=== PATIENT | male | born 1940 | race Caucasian/White ===

== ENCOUNTER → 2025-04-19 12:37 | Outpatient (REF) | payer MEDICARE, SELFPAY ==
[2025-04-19 13:30] LABS: % Basophils 0.2 % (0-2); % Immature Granulocytes 0.4 % (0-0.5); % Lymphocytes 6.2 % (20.5-51.1); % Monocytes 6.3 % (1.7-9.3); % Neutrophils 86.9 % (42.2-75.2); Absolute Lymphocytes 0.6 10^3/uL (1.2-3.4); Absolute Monocytes 0.6 10^3/uL (0.1-0.6); Absolute Neutrophils 8.1 10^3/uL (1.4-6.5); Hematocrit 39.9 % (39.0-52.0); Hemoglobin 13.4 g/dL (13.0-18.0); Mean Corp Hgb Conc. 33.6 g/dL (33.0-37.0); Mean Corpuscular Hgb 31.2 pg (27.0-31.0); Mean Corpuscular Volume 92.8 fL (80.0-94.0); Mean Platelet Volume 10.1 fL (7.4-10.4); Nucleated Red Blood Cells % 0 % (-); Platelet Count 168 10^3/uL (130-400); White Blood Cell Count 9.3 10^3/uL (4.8-10.8)
[2025-04-19 14:41] LABS: TSH Reflex To Free T4 0.84 uIU/ml (0.47-4.68)
[2025-04-19 15:31] LABS: Blood Urea Nitrogen 28 mg/dl (9-20); Calcium 9.4 mg/dl (8.4-10.2); Carbon Dioxide 25 mmol/L (22-30); Chloride 103 mmol/L (98-107); Glucose 92 mg/dl (70-99); Potassium 4.5 mmol/L (3.5-5.1); Sodium 136 mmol/L (135-145); eGFR 54.51
== END ==
LOC: RAD 12:37
PROVIDERS: ATTENDING PHYSICIAN Internal Medicine
DX: R05.1 Acute cough (principal); I49.9 Cardiac arrhythmia, unspecified; E03.9 Hypothyroidism, unspecified
CPT/HCPCS: 36415; 71046; 80048; 84443; 85025

== ENCOUNTER 2025-04-20 01:41 | Inpatient (IN) | payer MEDICARE, SELFPAY ==
[2025-04-19 22:09] VITALS: BP 121/69
[2025-04-19 22:35] VITALS: BP 132/73
[2025-04-19 22:38] VITALS: BMI 28.6
[2025-04-19 23:00] VITALS: BP 117/61
[2025-04-19 23:06] LABS: % Basophils 0.3 % (0-2); % Immature Granulocytes 0.3 % (0-0.5); % Lymphocytes 2.8 % (20.5-51.1); % Monocytes 4.4 % (1.7-9.3); % Neutrophils 92.2 % (42.2-75.2); Absolute Lymphocytes 0.2 10^3/uL (1.2-3.4); Absolute Monocytes 0.3 10^3/uL (0.1-0.6); Hematocrit 35.4 % (39.0-52.0); Hemoglobin 12.3 g/dL (13.0-18.0); Mean Corp Hgb Conc. 34.7 g/dL (33.0-37.0); Mean Corpuscular Hgb 31.2 pg (27.0-31.0); Mean Corpuscular Volume 89.8 fL (80.0-94.0); Nucleated Red Blood Cells % 0 % (-); Platelet Count 141 10^3/uL (130-400); Red Blood Cell Count 3.94 10^6/uL (4.70-6.10); Red Cell Dist. Width 12.7 % (11.5-14.5); White Blood Cell Count 7.5 10^3/uL (4.8-10.8)
[2025-04-19 23:14] LABS: INR 1.69; PT 20.1 Sec (11.4-14.6)
[2025-04-19 23:17] LABS: Blood Urea Nitrogen 29 mg/dl (9-20); Calcium 8.7 mg/dl (8.4-10.2); Carbon Dioxide 24 mmol/L (22-30); Chloride 104 mmol/L (98-107); Estimated Creatinine Clearance 56 ml/min; Glucose 113 mg/dl (70-99); Sodium 131 mmol/L (135-145); eGFR 54.51
[2025-04-19 23:26] LABS: Lactic Acid 1.7 mmol/L (0.7-2.0)
[2025-04-19 23:26] LABS: COVID-19 Antigen Negative (Negative)
[2025-04-19 23:32] LABS: NT-proBNP 1620 pg/ml
--- NOTE | 2025-04-19 23:59 | ED.GENMED ---
Addendum entered and electronically signed by Theodore Carrera DO 04/20/25 00:56:
Discussed with daughter patient is transferring his medical care to [place] was actually set to see Dr. Birmingham tomorrow from cardiology
Original Note:
History of Present Illness
General
Chief Complaint: Fall
Source: patient and family
Exam Limitations: none
Time Seen by Provider: 04/19/25 23:41
Nursing documentation reviewed up to this point in time: agreed with
History of Present Illness
History of Present Illness:
Patient very pleasant 84-year-old male companied by his daughter patient is from [place] patient relocated up here recently because his spouse was diagnosed with cancer she passed recently, patient personally has bypass surgery A-fib who
supposed to have a cardioversion but it was put on hold due to missing some doses of his anticoagulant, past few days has had fever chills cough trouble getting out of bed, outpatient x-ray today showed pneumonia has had a rattle in his chest never
had a COVID shot not eating or drinking, no dysuria frequency patient is hard of hearing he did fall today denies hitting his head other was not witnessed by his daughter she heard a thump
Past History
Past History
ED Past Medical History: Arrthythmia and HTN
ED Past Surgical History: Cardiac
Social History
Tobacco: Non-smoker
Alcohol: None
Drug: None
Personal:
Living: with family
Employment: Retired
Review of Systems
Review of Systems
All Other Systems: Not applicable
Constitutional: Reports fever and fatigue
Respiratory: Reports cough and trouble breathing
Cardiac: Reports no symptoms
ABD/GI: Reports no symptoms
Neurological: Reports weakness
Endocrine: Reports no symptoms
Psychiatric: Reports no symptoms
Phy Exam
Physical Exam
Physical Exam:
Physical Exam
General: Elderly male feels warm coughing dry lips globally weak
Neck: No jaundice
Heart: Rapid and irregular
Lungs: Rhonchi left greater than
Abdomen: Soft
Neuro: alert and oriented. Globally weak
Skin: no rash
Psychiatric: Cooperative
Extremities: Edema is present
Course
Orders/Labs/Results
Orders:
Orders
04/19/25 22:14
Electrocardiogram (*1) Urgent
Reason for Study: Other
Other Reason for Exam: Respiratory Distress
Cardiac Monitoring- Treatment ONCE
EKG- Treatment ONCE
IV Insert/Care/Rem.- Treatment PRN
O2 Therapy [RESP] Urgent
Titrate/Wean O2 to maintain O2 sat greater than (%): 93
Special Instructions: TO MAINTAIN CONTINUOUS O2 SATS >/= 93%
Pulse Ox/cont/shift [RESP] Urgent
Quantity: 1
Special Instructions: continuous pulse ox
04/19/25 22:55
IV Insert/Care/Rem.- Treatment PRN
Straight cath- Treatment ONCE
Urinalysis Reflex To Culture Urgent
Date Specimen was Collected: 04/19/25
Time Specimen was Collected: 22:56
04/19/25 22:57
Basic Metabolic Panel Urgent
Complete Blood Count/With Diff Urgent
NT-proBNP Urgent
Prothrombin Time Urgent
04/19/25 23:01
COVID-19 Antigen Urgent
Source: Nasal Swab
Influenza A+B Rapid Molecular Urgent
ANN Source: Nasal Swab
Specimen Description:
04/19/25 23:02
Lactic Acid Q4H
Comment: ON ICE, CANCEL 2ND ORDER IF FIRST LACTIC ACID LEVEL <2
Blood Culture Urgent
ANN Source: Blood/Venous
Specimen Description:
Date Specimen was Collected: 04/19/25
Time Specimen was Collected: 22:56
04/19/25 23:14
CR Chest Portable - 1 View Urgent
Comment: portable
Reason For Exam: SOB
04/19/25 23:50
Rectal Temp- Treatment ONCE
0.9% Sodium Chloride 1000 ml [Nss] 1,000 ml IV BOLUS
Acetaminophen [Tylenol] 1,000 mg PO NOW STA
04/19/25 23:51
Ipratropium/Albuterol Sulfate [Duoneb] 3 ml INH R NOW STA
04/19/25 23:53
Blood Culture Q30M
ANN Source: Blood/Venous
Specimen Description:
Azithromycin [Zithromax] 500 mg PO NOW STA
CefTRIAXone [Rocephin] 1,000 mg IV NOW STA
04/19/25 23:54
CT Cervical Spine W/o Iv Contr Urgent
Comment:
Reason For Exam: fall noac
CT Head W/o Iv Contrast Urgent
Comment:
Reason For Exam: fall noac
Cardiac Monitoring- Treatment ONCE
04/20/25 00:23
Blood Culture Q30M
ANN Source: Blood/Venous
Specimen Description:
04/20/25 03:00
Lactic Acid Q4H
Comment: ON ICE, CANCEL 2ND ORDER IF FIRST LACTIC ACID LEVEL <2
Abnormal Lab Results
04/19/25
22:57
RBC 3.94 L 10^6/uL
(4.70-6.10)
Hgb 12.3 L g/dL
(13.0-18.0)
Hct 35.4 L %
(39.0-52.0)
MCH 31.2 H pg
(27.0-31.0)
Absolute Neuts (auto) 7.0 H 10^3/uL
(1.4-6.5)
Absolute Lymphs (auto) 0.2 L 10^3/uL
(1.2-3.4)
Neutrophils % 92.2 H %
(42.2-75.2)
Lymphocytes % 2.8 L %
(20.5-51.1)
PT 20.1 H Sec
(11.4-14.6)
Sodium 131 L mmol/L
(135-145)
BUN 29 H mg/dl
(9-20)
Glucose 113 H mg/dl
(70-99)
04/19/25 22:57
04/19/25 22:57
Vital Signs
Initial and Last Documented VS:
Initial Vital Signs
Temp Pulse Resp BP Pulse Ox
98.0 F 107 19 121/69 91
04/19/25 22:09 04/19/25 22:09 04/19/25 22:09 04/19/25 22:09 04/19/25 22:09
Last Documented Vital Signs
Temp Pulse Resp BP Pulse Ox
99.8 F 109 29 117/61 94
04/19/25 22:50 04/19/25 23:00 04/19/25 23:00 04/19/25 23:00 04/19/25 23:14
MDM/Problems Addressed
Differential Diagnosis Includes:
Pneumonia bronchitis viral syndrome dehydration conceivably intracerebral hemorrhage or UTI
MDM/Problems Addressed:
Cough fatigue
Chronic conditions affecting care: Arrhythmia
Acute Exacerbation and/or Progression of Chronic Illness: Arrhythmia
*Radiology
Radiology exam reviewed: preliminary read by ED provider and radiology read reviewed
*Pulse Oximetry
Patient hypoxic: yes
*EKG
Interpreted by ED Provider?: Yes
Interpretation: abnormal
Comparison EKG: no comparison EKG present
Heart Rate: 78
Rate: normal
Rhythm: a-fib
Ischemia: non-specific ST changes
*Weight Inspector Interpretation
Rate: normal
Interpretation: normal
Heart Rate: 78
Rhythm: a-fib
*Critical Care Note
Total Time (30-74mins, 75-104mins- exclusive of procedures): 15
Data Reviewed
Review of Other/Old Records Reveals: Radiology Studies
Source: patient and family
Update Note
Update Note:
Update patient clinically and radiographically with pneumonia, he is elderly frail weak not eating or drinking hypoxic will start on antibiotics IV fluids also check CT of the head
ED Attending Note
-
Portions of this chart may have been created with voice recognition software.� Occasional wrong word or��sound alike� substitutions may have occurred due to the inherent limitations of voice recognition software.
Discharge Plan
Interventions
Interventions:
*Risk Screen - Suicide Last Done: 04/19/25 22:09
*Neglect/Abuse Screening Last Done: 04/19/25 22:09
*ED- Fall Risk Assessment Last Done: 04/19/25 22:50
*ED COVID-19 Vaccine History Last Done: 04/19/25 22:50
ED-Musculoskeletal Assessment Last Done: 04/19/25 22:50
ED- Neurological Assessment Last Done: 04/19/25 22:50
ED-Skin Assessment Last Done: 04/19/25 22:50
Discharge Date and Time
Print Language: EGYPTIAN
[2025-04-20] VITALS (10 sets, daily range): BP systolic 101–146; BP diastolic 57–79; BMI 29.0
[2025-04-20] MEDS: NSS 1000 IV (00:15)
[2025-04-20] MEDS: ZITHROMAX 500 MG PO (00:41)
[2025-04-20] MEDS: ROCEPHIN 1000 MG IV ×2 (00:41→21:33)
[2025-04-20] MEDS: TYLENOL 1000 MG PO (00:41)
[2025-04-20] MEDS: DUONEB 3 ML INH (00:42)
[2025-04-20 01:19] LABS: Urine Albumin 3+ (Neg - Trace); Urine Bilirubin Negative (Negative); Urine Character Clear (Clear); Urine Color Yellow; Urine Glucose Negative (Negative); Urine Ketone Negative (Negative); Urine Leukocyte Negative (Negative); Urine Nitrite Negative (Negative); Urine Occult Blood Negative (Negative); Urine Specific Gravity 1.015 (<1.030); Urine Urobilinogen Negative (Neg - 1+)
[2025-04-20 01:32] LABS: Urine Bacteria Few (Negative); Urine Red Blood Cell 0-2 /HPF (0-2); Urine White Cell 0-2 /HPF (0-5)
--- NOTE | 2025-04-20 01:36 | HPS.HSE ---
Family Physician
-
Family Physician: Eagle Gr MD
Chief Complaint
-
Weakness, Cough
History of Present Illness
Patient is an 84y M with PMH significant for ASCVD, PA-Fib and hypothyroidism who presents to ED complaining of weakness and cough. History obtained from patient and his family at the bedside. Patient has had about one week of chest congestion,
hacking / non-productive cough and generalized weakness / fatigue. He was seen by his PCP today and sent for CXR. This evening he became more weak and this resulted in a fall at home. Patient denies striking his head. He denies any loss of
consciousness, syncope, chest pain, etc.
Patient presented to the ED for further evaluation and treatment.
Patient recently relocated to [place] from [place]. His of 60 years 2 weeks ago from cancer.
He was being followed in [place] for recurrent A-Fib with plans for cardioversion this week.
He was placed on amiodarone 200mg daily - but he ran out of these pills amidst his 's illness and his relocation.
Medical History
Past Medical History
Past Medical History: Reports Other
Additional Past Medical History:
ASCVD
Paroxysmal Atrial Fibrillation
CHF - Unknown Type
Hypothyroidism
Hypertension
Past Surgical History: Reports Other
Additional Past Surgical History:
CABG x3
Bilateral Rotator Cuff Repairs
Bilateral Knee Arthroscopies
Social History
Tobacco: Non-smoker
Alcohol: None
Drug: None
Family History
Family History: Not pertinent
Allergies / Home Medications
Allergies reflects when Allergies were last updated in [facility].
Home Medications with original date entered in [facility]
Allergy/Medication List:
Allergies
Allergy/AdvReac Type Severity Reaction Status Date / Time
No Known Allergies Allergy Unverified 04/19/25 22:09
Home Medications
apixaban 2.5 mg tablet (Eliquis) 2.5 mg PO BID 04/20/25
ascorbic acid (vitamin C) 1,000 mg tablet (Vitamin C) 1,000 mg PO DAILY 04/20/25
aspirin 81 mg tablet 81 mg PO DAILY 04/20/25
atorvastatin 40 mg tablet (Lipitor) 40 mg PO HS 04/20/25
bumetanide 0.5 mg tablet 0.5 mg PO DAILY 04/20/25
coenzyme Q10 100 mg capsule (CoQ-10) 100 mg PO DAILY 04/20/25
levothyroxine 75 mcg tablet (Synthroid) 75 mcg PO DAILY 04/20/25
multivitamin 1 tab PO DAILY 04/20/25
valsartan 40 mg tablet 40 mg PO 1XD 04/20/25
Review of Systems
-
History Source: Patient and Family
A 12 point ROS was completed and negative except as noted: Yes
Constitutional: Reports Fever, Fatigue and Chills
EENT: Denies Sore Throat
Respiratory: Reports Cough and Trouble Breathing
Cardiac: Denies Chest Pain or Palpitations
Abdomen/GI: Denies Abdominal Pain, Nausea, Vomiting or Diarrhea
: Denies Dysuria or Frequency
Musculoskeletal: Reports Edema (chronic R ankle edema); Denies Joint Pain
Neurological: Reports Dizzy and Weakness; Denies Headache
Psych: Denies Depression or Anxiety
Physical Exam
Vital Signs
Vital Signs
Temp Pulse Resp BP Pulse Ox
102.5 F H 90 24 146/66 96
04/20/25 00:05 04/20/25 01:15 04/20/25 01:15 04/20/25 01:00 04/20/25 01:15
Physical Exam
General: Other (84y M in no acute distress.)
HEENT: Moist mucous membranes and PERRLA
Respiratory: Other (Coarse breath sounds over the L base. No wheezes / rales.)
Cardiac: S1/S2, Irregular Rhythm and Murmur (II/ ABILIO)
GI: Soft, Non Tender, Non Distended and Normal Bowel Sounds
Musculoskeletal: No Clubbing, No Cyanosis and Other (1+ edema R ankle.)
Neuro: AO x 3
Laboratory Results
-
04/19/25 22:57
04/19/25 22:57
Laboratory Results
PT 20.1 Sec (11.4-14.6) H 04/19/25 22:57
INR 1.69 04/19/25 22:57
Lactic Acid 1.0 mmol/L (0.7-2.0) 04/20/25 00:39
Total Bilirubin Cancelled 04/19/25 22:57
AST Cancelled 04/19/25 22:57
ALT Cancelled 04/19/25 22:57
Alkaline Phosphatase Cancelled 04/19/25 22:57
Troponin I Cancelled 04/19/25 22:14
Impression/Plan
-
A/P: Patient is an 84y M with PMH significant for ASCVD and PA-Fib who presents to ED complaining of cough, weakness and fall at home this evening.
LLL Pneumonia
Sepsis secondary to the above
Acute Hypoxemic respiratory Failure secondary to the above
- Admit for further evaluation and treatment.
- Patient presents with fever, tachycardia, tachypnea and CXR showing L base pneumonia.
- Abx for CAP. Supportive care with nebs, mucolytics, etc.
- Follow for clinical improvement.
- Continue supplemental oxygen (SpO2 = 87% on room air in the ED) and wean as able.
Paroxysmal Atrial Fibrillation
- Patient in A-Fib / sinus arrhythmia in the ED.
- Continue usual Eliquis for stroke risk reduction.
- Monitor on telemetry overnight.
- Check Echo.
- Cardiology evaluation.
CHF - Unknown Type
- Does not appear grossly volume overloaded on exam.
- Some chronic R ankle edema s/p R saphenous vein harvest.
- Hold bumetanide dose for now given pneumonia / sepsis.
- Check Echo as noted above.
- Follow I/Os, daily weights, etc.
Benign Hypertension
- Continue valsartan with holding parameters.
Hypothyroidism
- Continue usual T4 replacement.
DVT Prophylaxis: On Eliquis
Code Status: Full
[2025-04-20 02:20] LABS: ALT (SGPT) 21 U/L (0-50); AST (SGOT) 22 U/L (17-59); Albumin 3.1 g/dl (3.5-5.0); Alkaline Phosphatase 60 U/L (38-126); Blood Urea Nitrogen 29 mg/dl (9-20); Calcium 8.5 mg/dl (8.4-10.2); Carbon Dioxide 24 mmol/L (22-30); Chloride 104 mmol/L (98-107); Estimated Creatinine Clearance 60 ml/min; Glucose 106 mg/dl (70-99); Sodium 134 mmol/L (135-145); Total Protein 5.1 g/dl (6.3-8.2); eGFR > 60.00
--- NOTE | 2025-04-20 02:45 | PTCARENOTE ---
Received patient from ED via stretcher. Pt [id number], KATERINA. Pox: 95% 2L NC. A fib on pharmacy associate. Call andre within reach. Bed alarm on. Plan of care ongoing.
[2025-04-20] MEDS: SYNTHROID 75 MCG PO (06:10)
[2025-04-20 07:52] LABS: Hematocrit 37.5 % (39.0-52.0); Hemoglobin 12.7 g/dL (13.0-18.0); Mean Corp Hgb Conc. 33.9 g/dL (33.0-37.0); Mean Corpuscular Hgb 31.4 pg (27.0-31.0); Mean Corpuscular Volume 92.8 fL (80.0-94.0); Mean Platelet Volume 10.3 fL (7.4-10.4); Platelet Count 139 10^3/uL (130-400); Red Blood Cell Count 4.04 10^6/uL (4.70-6.10); Red Cell Dist. Width 12.8 % (11.5-14.5); White Blood Cell Count 8.5 10^3/uL (4.8-10.8)
--- NOTE | 2025-04-20 08:08 | CON.CAR ---
Addendum entered and electronically signed by Jamaal Green DO 04/20/25 14:42:
I saw and examined the patient.
The Poultry Tender's note was reviewed and I agree with the note.
Comment:
Plan:
HPI: Patient came to [facility] ER last night after a fall at home and was admitted with generalized weakness and PNA, cardiology is now consulted for atrial arrhythmia. Patient previously living in [place], but his of 60 years just 2
weeks ago of cancer and they had moved back locally just prior to her passing to be closer to family. In that time he started missing doses of medications as he was focused on caring for his and they had moved quickly.
He last saw his c.o.d. clerk in [place] on February 2025 and at that time he was in atrial flutter of unclear duration and he was asymptomatic. The patient had not been taking beta-garth due to previous bradycardia and his c.o.d. clerk in
[place] elected to start him on amiodarone and set him up for a WYATT/CV as he had been missing doses of Eliquis. Patient has a history of paroxysmal atrial fibrillation as well and had previous cardioversion in 2016. His most recent cardiac
issue was CABG that he had 05/31/2024 as outlined above. He reports that he has been compliant with his Bumex 0.5 mg daily and reports increased urine output with that dosing.
Remains in rate controlled Atrial flutter, cont with Eliquis. Eventual consideration for outpt cardioversion
Cont rate control strategy for now. Toprol added.
Bumex held for possible sepsis and the patient received 1 L IVF. Consider resuming Bumex in a.m.
Echo pending. Last EF was 60 to 65% by outside echo April 2024.
Cont losartan.
With regards to history of CABG, remains chest pain-free.
Continue Lipitor for hyperlipidemia.
Discussed with primary service.
Original Note:
Consultation
Consultation Request
Date/Time Consultation Requested: 04/20/25 at 0231
Date/Time Consultation Performed: 04/20/25 at 0930
Requesting Provider: Dr. Caldwell
Performing Provider: Dr. Green
Reason for Consultation: SOB, h/o CHF, h/o Afib
Medical History
-
History of Present Illness:
Patient came to [facility] ER last night after a fall at home and was admitted with generalized weakness and PNA, cardiology is now consulted for atrial arrhythmia. Patient previously living in [place], but his of 60 years just 2 weeks
ago of cancer and they had moved back locally just prior to her passing to be closer to family. In that time he started missing doses of medications as he was focused on caring for his and they had moved quickly. I was able to get cardiology
notes from when he last saw his c.o.d. clerk in [place] on 03/03/2025 and at that time he was in atrial flutter of unclear duration and he was asymptomatic. The patient had not been taking beta-garth due to previous bradycardia and his
c.o.d. clerk in [place] elected to start him on amiodarone and set him up for a WYATT/CV as he had been missing doses of Eliquis. Patient has a history of paroxysmal atrial fibrillation as well and had previous cardioversion in 2016. His most
recent cardiac issue was CABG that he had 05/31/2024 as outlined above. He reports that he has been compliant with his Bumex 0.5 mg daily and reports increased urine output with that dosing.
PMH:
Paroxysmal atrial flutter and tachycardia
Paroxysmal atrial fibrillation
previous CV 2015
Chronic Eliquis OAC
CAD s/p CABG with VAZQUEZ to LAD, reverse SVG to RCA and reverse SVG to OM1 at [facility] 05/31/2024
Chronic HFpEF
HTN
Hypothyroid
Past Medical History
Past Medical History: Other (in HPI)
Past Surgical History: Cardiac (CABG 05/2024)
Social History
Tobacco: Former Smoker (quite in 2003)
Alcohol: Occasional (1-2 drinks a week)
Drug: None
Personal: (his of 60 years just from cancer 03/2025)
Living: With Family (staying at his daughters)
Family History
Family History: CAD and Other (brother with Prader Willi syndrome)
Allergies / Home Medications
Allergy/AdvReac Type Severity Reaction Status Date / Time
No Known Allergies Allergy Unverified 04/19/25 22:09
�Medication �Instructions �Recorded �Confirmed �Type
apixaban 2.5 mg tablet (Eliquis) 2.5 mg PO BID 04/20/25 04/20/25 History
ascorbic acid (vitamin C) 1,000 mg 1,000 mg PO DAILY 04/20/25 04/20/25 History
tablet (Vitamin C)
aspirin 81 mg tablet 81 mg PO DAILY 04/20/25 04/20/25 History
atorvastatin 40 mg tablet (Lipitor) 40 mg PO HS 04/20/25 04/20/25 History
bumetanide 0.5 mg tablet 0.5 mg PO DAILY 04/20/25 04/20/25 History
coenzyme Q10 100 mg capsule 100 mg PO DAILY 04/20/25 04/20/25 History
(CoQ-10)
levothyroxine 75 mcg tablet 75 mcg PO DAILY 04/20/25 04/20/25 History
(Synthroid)
multivitamin 1 tab PO DAILY 04/20/25 04/20/25 History
valsartan 40 mg tablet 40 mg PO 1XD 04/20/25 04/20/25 History
Review of Systems
-
History Source: Patient
All other systems: Negative unless noted
Physical Exam
Vital Signs
Temp Pulse Resp BP Pulse Ox
96.4 F L 92 18 130/79 96
04/20/25 07:35 04/20/25 07:35 04/20/25 02:30 04/20/25 07:35 04/20/25 07:35
GEN: NAD. AAOx3
HEENT: EOMI, MMM, wearing glasses
LUNGS: 2 L NC. No audible wheeze or rales
CV: Atrial flutter on tele. Irreg irreg, S1/S2, 2/ syst LSB
ABD: soft, BS+, NT, ND
EXT: No clubbing, cyanosis or lesions B/L. +1 right worse than left LE edema
NEURO: Gross non-focal
SKIN: No rash
Lab Results
04/20/25 07:20
Troponin I Cancelled 04/19/25 22:14
Yor-[id number]-[id number] Pept 1620 pg/ml 04/19/25 22:57
Impression / Plan
-
PCP: Dr. Eagle Gr
Card: scheduled to see Dr. Horner 04/20/25, previously followed with [facility]
Impression:
Admitted with cough, weakness and fall 04/19/25
Acute hypoxemic respiratory failure
LLL PNA
Paroxysmal atrial flutter and tachycardia
Paroxysmal atrial fibrillation
previous CV 2016
Chronic Eliquis OAC
CAD s/p CABG with VAZQUEZ to LAD, reverse SVG to RCA and reverse SVG to OM1 at [facility] 05/31/2024
Chronic HFpEF
HTN
Hypothyroid
Echo 04/2024: [facility] system study, EF 60 to 65%, mild concentric LVH, no WMA, trace aortic regurgitation, trace MR, trace TR
Plan:
-Patient came to [facility] ER last night after a fall at home and was admitted with generalized weakness and PNA, cardiology is now consulted for atrial arrhythmia. Patient previously living in [place], but his of 60 years just 2 weeks
ago of cancer and they had moved back locally just prior to her passing to be closer to family. In that time he started missing doses of medications as he was focused on caring for his and they had moved quickly. I was able to get cardiology
notes from when he last saw his c.o.d. clerk in [place] on 03/03/2025 and at that time he was in atrial flutter of unclear duration and he was asymptomatic. The patient had not been taking beta-garth due to previous bradycardia and his
c.o.d. clerk in [place] elected to start him on amiodarone and set him up for a WYATT/CV as he had been missing doses of Eliquis. Patient has a history of paroxysmal atrial fibrillation as well and had previous cardioversion in 2016. His most
recent cardiac issue was CABG that he had 05/31/2024 as outlined above. He reports that he has been compliant with his Bumex 0.5 mg daily and reports increased urine output with that dosing.
-ECG reviewed by me initially in the ER shows atrial tachycardia and then looks more like atrial flutter with controlled ventricular response
-Telemetry reviewed by me looks like atrial fibrillation now, but could also be his atrial tachycardia.
-Patient with recurrent atrial arrhythmia that is likely persistent since 03/03/2025 when he was started on amiodarone 200 mg BID by his primary c.o.d. clerk in [place], but in that time he and his moved back to [place] and then she
2 weeks ago. Overall rates are controlled at this time so we will not restart amiodarone. Agree with the plan previously established by his c.o.d. clerk in [place] to pursue a rhythm control strategy
-Continue with Eliquis 5 mg BID (age 84, Cre 1.2, wt 110 kg). This was the dose ordered by his c.o.d. clerk in [place], but at some point dose was reduced to 2.5 mg BID
-Would recommend 4 weeks of OAC and then elective outpatient CV so long as HR remains under control
-Will add Toprol XL 25 mg daily starting now and follow on telemetry
-Outpatient dose of valsartan 40 mg daily has been continued
-Outpatient dose of Bumex 0.5 mg daily is on hold for possible sepsis and patient was given a 1L IVF bolus. Would not give additional IVFs and would follow daily weight. Would restart Bumex 0.5 mg daily in a.m. if labs stable
-Check echo, EF was 60 to 65% by echo 04/2024
-Patient had CABG 05/2024 and no reports of CP. ECG without acute ischemic change.
-Outpatient dose of atorvastatin 40 mg daily has been continued. Check CVE as an outpatient
[2025-04-20] MEDS: MUCINEX 600 MG PO ×2 (08:49→20:03)
[2025-04-20] MEDS: ASPIR LOW (ENTERIC COATED) 81 MG PO (08:49)
[2025-04-20] MEDS: VIBRAMYCIN 100 MG PO ×2 (08:50→20:03)
[2025-04-20] MEDS: DIOVAN 40 MG PO (08:50)
[2025-04-20] MEDS: ELIQUIS 2.5 MG PO (08:50)
[2025-04-20 09:03] LABS: Blood Urea Nitrogen 28 mg/dl (9-20); Carbon Dioxide 20 mmol/L (22-30); Chloride 106 mmol/L (98-107); Estimated Creatinine Clearance 59 ml/min; Glucose 123 mg/dl (70-99); Sodium 136 mmol/L (135-145); eGFR > 60.00
--- NOTE | 2025-04-20 11:52 | CM ---
Patint seen bedside.
IA completed with patient.
Patient lives with daughter in a multi level home with approx 10 steps to enter.
Bedroom 1st floor.
Patients spouse recently (March 2025) and he moved up to the area with daughter in February once spouse diagnosed with illness.
Patient independent prior to admission without assistive devices.
Patient denies hx of VN.
Patient currently on oxygen, not on prior to admission.
patient stated he has just been feeling weaker prior to admission.
Await PT/OT recommendations.
PCP: Dr Ortiz
Pharmacy: [facility]
Plan: home with possible VN needs, family will transport.
[2025-04-20] MEDS: TOPROL XL 25 MG PO (12:43)
--- NOTE | 2025-04-20 13:23 | W.PN.UPDATE ---
Update Note
Progress Note Update
Seen and examined independent of overnight physician
States of intermittent productive cough. Denies chest pain. States of mild shortness of breath
General: nad,
HEENT: Moist mucous membranes
Respiratory: Other (Coarse breath sounds over the L base. No wheezes / rales.), oxygen noted
Cardiac: S1/S2, Irregular Rhythm and Murmur (II/ ABILIO)
GI: Soft, Non Tender, Non Distended and Normal Bowel Sounds
Musculoskeletal: No Clubbing, No Cyanosis and Other (1+ edema R ankle.)
Neuro: AO x 3
A/P: Patient is an 84y M with PMH significant for ASCVD and PA-Fib who presents to ED complaining of cough, weakness and fall at home this evening.
LLL Pneumonia
Sepsis secondary to the above
Acute Hypoxemic respiratory Failure secondary to the above
- Patient presents with fever, tachycardia, tachypnea and CXR showing L base pneumonia.
- Abx for CAP. Supportive care with nebs, mucolytics, etc.
- Follow for clinical improvement.
- Continue supplemental oxygen (SpO2 = 87% on room air in the ED) and wean as able.
Paroxysmal Atrial Fibrillation
- Continue usual Eliquis for stroke risk reduction.
- Monitor on telemetry
- Check Echo.
- Cardiology evaluation.
Chronic HFpEF
- Some chronic R ankle edema s/p R saphenous vein harvest.
- Check Echo as noted above.
- Follow I/Os, daily weights, etc.
- restarted on home regimen of bumex
Benign Hypertension
- Continue valsartan with holding parameters.
Hypothyroidism
- Continue usual T4 replacement.
DVT Prophylaxis: On Eliquis
Code Status: Full
[2025-04-20] MEDS: ELIQUIS 5 MG PO (20:03)
[2025-04-20] MEDS: LIPITOR 40 MG PO (21:32)
[2025-04-20] MEDS: STERILE WATER FOR INJECTION 10 ML IV (21:33)
[2025-04-21] VITALS (7 sets, daily range): BP systolic 127–151; BP diastolic 77–89; PULSE 76; O2SAT 97; BMI 28.0
[2025-04-21] MEDS: SYNTHROID 75 MCG PO (06:09)
[2025-04-21 07:15] LABS: Blood Urea Nitrogen 31 mg/dl (9-20); Calcium 8.7 mg/dl (8.4-10.2); Carbon Dioxide 24 mmol/L (22-30); Chloride 106 mmol/L (98-107); Estimated Creatinine Clearance 64 ml/min; Glucose 95 mg/dl (70-99); Potassium 4.2 mmol/L (3.5-5.1); Sodium 135 mmol/L (135-145); eGFR > 60.00
[2025-04-21] MEDS: MUCINEX 600 MG PO ×2 (08:26→21:01)
[2025-04-21] MEDS: BUMEX 0.5 MG PO (08:26)
[2025-04-21] MEDS: VIBRAMYCIN 100 MG PO ×2 (08:26→21:02)
[2025-04-21] MEDS: DIOVAN 40 MG PO (08:27)
[2025-04-21] MEDS: ELIQUIS 5 MG PO ×2 (08:27→21:01)
[2025-04-21] MEDS: ASPIR LOW (ENTERIC COATED) 81 MG PO (08:27)
[2025-04-21] MEDS: TOPROL XL 25 MG PO (08:27)
--- NOTE | 2025-04-21 11:10 | W.PN.HOSP.TC ---
Today's Communication/Plan
-
Continue to wean down oxygen as tolerated
Continue with cardiac regimen per cardiology
Rehab evaluation
Continue with antibiotic
Assessment / Plan
Assessment / Plan
General: nad,
HEENT: Moist mucous membranes
Respiratory: Other (Coarse breath sounds over the L base. No wheezes / rales.), oxygen noted
Cardiac: S1/S2, Irregular Rhythm and Murmur (II/ ABILIO)
GI: Soft, Non Tender, Non Distended and Normal Bowel Sounds
Musculoskeletal: No Clubbing, No Cyanosis and Other (1+ edema R ankle.)
Neuro: AO x 3
A/P: Patient is an 84y M with PMH significant for ASCVD and PA-Fib who presents to ED complaining of cough, weakness and fall at home this evening.
LLL Pneumonia
Sepsis secondary to the above
Acute Hypoxemic respiratory Failure secondary to the above
- Patient presents with fever, tachycardia, tachypnea and CXR showing L base pneumonia.
- Abx for CAP. Supportive care with nebs, mucolytics, etc.
- Follow for clinical improvement.
- Continue supplemental oxygen (SpO2 = 87% on room air in the ED) and wean as able.
Paroxysmal Atrial Fibrillation/atrial flutter
- Continue usual Eliquis for stroke risk reduction.
- Monitor on telemetry
- Echo with EF of 50 to 55%. Normal left ventricular size and function.
- Cardiology evaluation.
CAD status post CABG
Chronic HFpEF
- Some chronic R ankle edema s/p R saphenous vein harvest.
- Check Echo as noted above.
- Follow I/Os, daily weights, etc.
- restarted on home regimen of bumex
Benign Hypertension
- Continue valsartan with holding parameters.
Hypothyroidism
- Continue usual T4 replacement.
DVT Prophylaxis: On Eliquis
Code Status: Full
PT eval
Anticipated Discharge: 24 - 48 hours
Subjective/Interval History
-
Date of Service: April 21, 2025
States he is starting to feel little bit better
Remains with dry cough
Objective Data
-
Labs:
Laboratory Results
04/21/25
06:18
Sodium 135
Potassium 4.2
Chloride 106
Carbon Dioxide 24
BUN 31 H
Creatinine 1.1
Glucose 95
Calcium 8.7
Vital Signs:
Vital Signs
Temp Pulse Resp BP Pulse Ox
97.9 F 77 16 151/84 94
04/21/25 07:48 04/21/25 07:48 04/21/25 07:48 04/21/25 07:48 04/21/25 08:20
I&O
04/20/25 04/21/25 04/22/25
06:59 06:59 06:59
Intake Total 240 / 240 1680 / 1680
Output Total 875 / 875
Balance 240 / 240 805 / 805
--- NOTE | 2025-04-21 16:18 | W.PN.CARDCBS ---
Addendum entered and electronically signed by Christopher Durham MD 04/21/25 16:37:
I saw and examined the patient.
The Bedspread Folder's note was reviewed and I agree with the note.
Comment: Briefly, 84-year-old man past medical history of atrial fibrillation/flutter and CAD with prior CABG who presented with cough and dyspnea found to have community-acquired pneumonia also found to be in atrial flutter
Remains in rate controlled atrial flutter today by review of telemetry
Would continue current metoprolol dose for goal heart rate less than 110 bpm
Eliquis for risk reduction of stroke
After he has completed treatment of pneumonia would consider direct-current cardioversion, this can be arranged as an outpatient
Stable cardiac status, we will sign off
Outpatient follow-up to be arranged
Original Note:
Today's Communication / Plan
-
Cont Toprol XL and Eliquis
Cont Bumex 0.5 mg PO daily
Will arrange outpatient cardiology follow-up
Impression / Plan
-
PCP: Dr. Eagle Gr
Card: scheduled to see Dr. Horner 04/20/25, previously followed with [facility]
Impression:
Admitted with cough, weakness and fall 04/19/25
Acute hypoxemic respiratory failure
LLL PNA
Paroxysmal atrial flutter and tachycardia
Paroxysmal atrial fibrillation
previous CV 2016
Chronic Eliquis OAC
CAD s/p CABG with VAZQUEZ to LAD, reverse SVG to RCA and reverse SVG to OM1 at [facility] 05/31/2024
Chronic HFpEF
HTN
Hypothyroid
Echo 04/2024: [facility] system study, EF 60 to 65%, mild concentric LVH, no WMA, trace aortic regurgitation, trace MR, trace TR
Echo 04/20/2025: EF 50 to 55%, mid to distal anteroseptal and inferoseptal hypokinesis, RV normal, trace MR, trace aortic insufficiency, mild TR with PAP 29 mmHg
Plan:
-Echo from 04/20/2025 reviewed by me and report summarized above on 04/21/2025. His EF is preserved with new mid to distal anteroseptal and inferoseptal hypokinesis compared to the echo report that we have from 04/2024 although a direct image to image
echo comparison cannot be made as this previous echo was done when he was living in [place].
-proBNP 1620 on admission and patient was given 1 L IVF bolus for possible sepsis on admission. No additional IVF's and we restarted his Bumex 0.5 mg daily on 04/21/2025
-Follow-up with [facility] [place] 04/22/2025
-Patient with recurrent atrial flutter that is likely persistent since 03/03/2025 when he was started on amiodarone 200 mg BID by his primary or scrub tech in [place], but in that time he and his moved back to [place] and then she
2 weeks ago.
-Overall rates are controlled at this time so we did not restart amiodarone and instead started Toprol XL 25 mg daily and HR is controlled. Agree with the plan previously established by his or scrub tech in [place] to pursue a rhythm control
strategy and following 4 weeks of OAC we can attempt an outpatient CV
-Continue with Eliquis 5 mg BID (age 84, Cre 1.2, wt 110 kg). This was the dose ordered by his or scrub tech in [place], but at some point dose was reduced to 2.5 mg BID and this is the dose he told us he was taking prior to admission, but this is
incorrect
-Outpatient dose of valsartan 40 mg daily has been continued
-Patient had CABG 05/2024 and no reports of CP. ECG without acute ischemic change.
-Outpatient dose of atorvastatin 40 mg daily has been continued.
HPI: Patient came to [facility] ER last night after a fall at home and was admitted with generalized weakness and PNA, cardiology is now consulted for atrial arrhythmia. Patient previously living in [place], but his of 60 years just 2
weeks ago of cancer and they had moved back locally just prior to her passing to be closer to family. In that time he started missing doses of medications as he was focused on caring for his and they had moved quickly. I was able to get
cardiology notes from when he last saw his or scrub tech in [place] on 03/03/2025 and at that time he was in atrial flutter of unclear duration and he was asymptomatic. The patient had not been taking beta-garth due to previous bradycardia
and his or scrub tech in [place] elected to start him on amiodarone and set him up for a WYATT/CV as he had been missing doses of Eliquis. Patient has a history of paroxysmal atrial fibrillation as well and had previous cardioversion in 2016.
His most recent cardiac issue was CABG that he had 05/31/2024 as outlined above. He reports that he has been compliant with his Bumex 0.5 mg daily and reports increased urine output with that dosing.
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
Subjective
Date of Service: April 21, 2025
He feels better
Objective
Labs:
04/20/25 07:20
04/21/25 06:18
Labs
Hgb 12.7 g/dL (13.0-18.0) L 04/20/25 07:20
Hct 37.5 % (39.0-52.0) L 04/20/25 07:20
Plt Count 139 10^3/uL (130-400) 04/20/25 07:20
PT 20.1 Sec (11.4-14.6) H 04/19/25 22:57
INR 1.69 04/19/25 22:57
Sodium 135 mmol/L (135-145) 04/21/25 06:18
Potassium 4.2 mmol/L (3.5-5.1) 04/21/25 06:18
BUN 31 mg/dl (9-20) H 04/21/25 06:18
Creatinine 1.1 mg/dL (0.7-1.3) 04/21/25 06:18
Glucose 95 mg/dl (70-99) 04/21/25 06:18
Troponins
04/19/25
22:14
Troponin I Cancelled
Vital Signs and I&O:
Vital Signs
Temp Pulse Resp BP Pulse Ox
97.8 F 77 17 140/89 96
04/21/25 15:03 04/21/25 15:03 04/21/25 15:03 04/21/25 15:03 04/21/25 15:03
Vital Signs
Temp Pulse Resp BP Pulse Ox
97.8 F 77 17 140/89 96
04/21/25 15:03 04/21/25 15:03 04/21/25 15:03 04/21/25 15:03 04/21/25 15:03
Intake & Output
04/19/25 04/20/25 04/21/25 04/22/25
06:59 06:59 06:59 06:59
Intake Total 240 / 240 1680 / 1680
Output Total 875 / 875 1410 / 1410
Balance 240 / 240 805 / 805 -1410 / -1410
Physical Exam
Physical Exam
GEN: NAD. AAOx3
LUNGS: 2 L NC.
CV: Atrial flutter on tele.
--- NOTE | 2025-04-21 16:38 | CM ---
Patient seen at bedside
PT rec HH
reviewed options with patient/daughter - prefer [facility]
Referral entered in [facility] - notified [facility] liaison
PLAN: home with [facility]
daughter to transport
[2025-04-21] MEDS: LIPITOR 40 MG PO (21:19)
[2025-04-21] MEDS: STERILE WATER FOR INJECTION 10 ML IV (21:19)
[2025-04-21] MEDS: ROCEPHIN 1000 MG IV (21:19)
[2025-04-22 03:33] VITALS: BP 142/82
[2025-04-22 06:00] VITALS: BMI 28.0
[2025-04-22] MEDS: SYNTHROID 75 MCG PO (06:38)
[2025-04-22 07:40] VITALS: BP 127/80
[2025-04-22] MEDS: TOPROL XL 25 MG PO (08:11)
[2025-04-22] MEDS: MUCINEX 600 MG PO (08:11)
[2025-04-22] MEDS: BUMEX 0.5 MG PO (08:11)
[2025-04-22] MEDS: DIOVAN 40 MG PO (08:11)
[2025-04-22] MEDS: ELIQUIS 5 MG PO (08:11)
[2025-04-22] MEDS: ASPIR LOW (ENTERIC COATED) 81 MG PO (08:11)
[2025-04-22] MEDS: VIBRAMYCIN 100 MG PO (08:11)
--- NOTE | 2025-04-22 10:16 | CM ---
Addendum entered by Daniela Garcia 04/22/25 11:48:
per respiratory home oxygen assessment - no oxygen required
Original Note:
Patient seen at bedside
IMM explained & signed. in chart
Home oxygen assessment
Referral in [facility] for [facility]-accepted
PLAN: Home with [facility], await home 02 assessment
[2025-04-22 10:27] LABS: Blood Urea Nitrogen 30 mg/dl (9-20); Carbon Dioxide 24 mmol/L (22-30); Chloride 106 mmol/L (98-107); Estimated Creatinine Clearance 64 ml/min; Glucose 89 mg/dl (70-99); Sodium 137 mmol/L (135-145); eGFR > 60.00
[2025-04-22 10:53] VITALS: BP 121/86
[2025-04-22] MEDS: MILK OF MAGNESIA 30 ML PO (10:58)
[2025-04-22] MEDS: SENOKOT-S 1 TABLET PO (10:58)
--- NOTE | 2025-04-22 10:58 | W.PN.HOSP.TC ---
Addendum entered and electronically signed by Stevo Caldwell MD 04/23/25 13:14:
Right second and third toe pressure injury POA
woundc are
Original Note:
Today's Communication/Plan
-
Home O2 evaluation
Bowel regimen
Goal-directed medical therapy per cardiology
P.o. antibiotics on discharge.
Assessment / Plan
Assessment / Plan
General: nad,
HEENT: Moist mucous membranes
Respiratory: Coarse breath sounds L>R
Cardiac: S1/S2, Murmur (II/ ABILIO)
GI: Soft, Non Tender, Non Distended and Normal Bowel Sounds
Musculoskeletal: No Clubbing, No Cyanosis and Other (1+ edema R ankle.)
Neuro: AO x 3
A/P: Patient is an 84y M with PMH significant for ASCVD and PA-Fib who presents to ED complaining of cough, weakness and fall at home this evening.
LLL Pneumonia
Sepsis secondary to the above
Acute Hypoxemic respiratory Failure secondary to the above
- Patient presents with fever, tachycardia, tachypnea and CXR showing L base pneumonia.
- Abx for CAP. Supportive care with nebs, mucolytics, etc.
- Follow for clinical improvement. To be antibiotics on discharge.
- Continue supplemental oxygen (SpO2 = 87% on room air in the ED) and wean as able. Plan for home o2 eval.
Paroxysmal Atrial Fibrillation/atrial flutter
- Continue usual Eliquis and dose adjusted to 5 mg twice daily. Also started on Toprol per cardiology.
- Monitor on telemetry
- Echo with EF of 50 to 55%. Normal left ventricular size and function.
- Cardiology evaluation.
CAD status post CABG
Chronic HFpEF
- Some chronic R ankle edema s/p R saphenous vein harvest.
- Follow I/Os, daily weights, etc.
- restarted on home regimen of bumex
Benign Hypertension
- Continue valsartan with holding parameters.
Hypothyroidism
- Continue usual T4 replacement.
Constipation
Bowel regimen
DVT Prophylaxis: On Eliquis
Code Status: Full
PT eval Home health.
More than 30 minutes spent in discharge including
Final examination of the patient
Summarizing hospital stay
Instructions for continuing care to all relevant caregivers
Preparation of discharge records, prescriptions, and referral forms
Total time spent (in minutes): 52
Anticipated Discharge: Today
Subjective/Interval History
-
Date of Service: April 22, 2025
Remains on oxygen
states feeling better today
Objective Data
-
Labs:
Laboratory Results
04/22/25 04/22/25
06:36 07:54
Sodium Cancelled 137
Potassium Cancelled 4.0
Chloride Cancelled 106
Carbon Dioxide Cancelled 24
BUN Cancelled 30 H
Creatinine Cancelled 1.1
Glucose Cancelled 89
Calcium Cancelled 9.0
Vital Signs:
Vital Signs
Temp Pulse Resp BP Pulse Ox
98 F 78 16 127/80 95
04/22/25 07:40 04/22/25 08:11 04/22/25 07:40 04/22/25 08:11 04/22/25 07:40
I&O
04/21/25 04/22/25 04/23/25
06:59 06:59 06:59
Intake Total 1680 / 1680 480 / 480
Output Total 875 / 875 1910 / 1910
Balance 805 / 805 -1430 / -1430
--- NOTE | 2025-04-22 11:15 | VNURNOTE ---
Home Health Liaison met with patient at bedside to discuss [facility] nurse/therapy, visits, schedule and homebound status. Patient is agreeable and understands that visits at home will be 2-3 x per week to assess and teach medical management.
Patient is aware that [facility] will contact them for start of care in 1-2 days after discharge from .
[facility] referral accepted in [facility].
--- NOTE | 2025-04-22 12:38 | W.DCSUMMARY ---
Discharge Summary
Discharge Data
Date of Admission: 04/20/25
Date of Discharge: 04/22/25
-
Pending Results: No
Hospital Course
84-year-old male extensive past medical history of CAD status post CABG, chronic HFpEF, hypertension, hypothyroidism, atrial fibrillation, chronic coagulopathy with Eliquis is presenting from home with complaints of weakness and fall. Patient was
found to have sepsis secondary to pneumonia and was started on IV broad-spectrum antibiotics. Patient also was acute hypoxic respiratory failure required oxygenation. Patient oxygen was weaned off. Patient did not qualify for home oxygenation.
Cardiology was consulted and patient cardiac medications were adjusted. Patient was started on Toprol. Eliquis dose was increased to appropriate regimen of 5 mg twice daily. Patient was eval by physical and Occupational Therapy with plan for home
health. Patient with transition from IV antibiotics to p.o. antibiotics on discharge.
Discharge Plan
-
Patient Disposition: Home with Home Care
Discharge Diagnosis/Procedures: Sepsis secondary to left lower lobe pneumonia
Acute hypoxic respiratory failure
Paroxysmal atrial fibrillation
Condition: Fair
Diet: 2 Gram Sodium
Other Services: [facility]
Specialty Instructions: Weigh Daily- Call MD for wt gain/loss 3 lbs overnight/5 lbs in 1 week
Referrals:
Eagle Gr MD [Family Provider, Internal Medicine] - in less than 1 week
Mohit Horner DO [Active, Cardiology]
Referral Note: You have an appointment to see Dr. Birmingham's nurse practitioner, Flor, at the [facility] on 05/11/2025 at 9:20 AM. Please call [phone] if you need to reschedule. The office is also working on an appointment for you to
establish with a workers compensation claims supervisor in the office and we will call you with that appointment.
Prescriptions:
New
doxycycline hyclate 100 mg Capsule
100 mg PO Q12 3 Days Qty: 6 0RF
metoprolol succinate 25 mg Tablet Extended Release 24 Hr
25 mg PO DAILY 30 Days Qty: 30 0RF
Eliquis 5 mg Tablet
5 mg PO BID 30 Days Qty: 60 0RF
guaifenesin 600 mg Tablet Extended Release 12hr
600 mg PO Q12 7 Days Qty: 14 0RF
cefdinir 300 mg capsule
300 mg PO BID Qty: 6 0RF
albuterol sulfate 90 mcg/actuation aerosol powdr breath activated
2 inh inhalation Q6H PRN (Reason: shortness of breath or wheezing) Qty: 1 0RF
sennosides [senna] 8.6 mg tablet
8.6 mg PO BID Qty: 14 0RF
Continued
atorvastatin [Lipitor] 40 mg Tablet
40 mg PO HS
levothyroxine [Synthroid] 75 mcg Tablet
75 mcg PO DAILY
bumetanide 0.5 mg Tablet
0.5 mg PO DAILY
aspirin 81 mg Tablet
81 mg PO DAILY
valsartan 40 mg Tablet
40 mg PO 1XD
multivitamin Tablet
1 tab PO DAILY
ascorbic acid (vitamin C) [Vitamin C] 1,000 mg Tablet
1,000 mg PO DAILY
coenzyme Q10 [CoQ-10] 100 mg Capsule
100 mg PO DAILY
Discontinued
Eliquis 2.5 mg Tablet
2.5 mg PO BID
Discharge Orders:
Discharge Patient (As Directed); Ordered 04/22/25
Ordered By: Stevo Caldwell
Discharge Date and Time
Print Language: IVORIAN
--- NOTE | 2025-04-22 13:06 | PN.CDI ---
CDI
- -
CDI:
Physician Documentation Request
Admit Date: 04/20/25 01:41
Dear Doctor,
Please review the following and provide your response in the progress notes.
Clinical Indicators:
Pt admitted for sepsis secondary to pneumonia.
6/2 RN initial wound assessment, in wound panel, documented right second toe and right third toe pressure injuries, stage Deep tissue injury.
Physician documentation of the type and location of wounds is required for compliant documentation. Based on the above clinical findings and your assessment, please provide the following in your progress note:
1. Location of the ulcer/wound, including laterality.
2. Type (etiology) of ulcer/wound:
Right second and third toe pressure injury POA
Right second toe and third toe non-pressure injuries POA
Other
Use of terms such as suspected, likely, concern for, or probable (associated with a specific diagnosis that is being evaluated, monitored, or treated as if it exists) are acceptable and can be coded in the inpatient setting, when documented at the
time of discharge.
Thank you,
Gretchen Hogan RN, BSN
CDI Specialist
[place] [facility]
Please use your independent medical judgment in providing your response.
*Source: National Pressure Ulcer Advisory Panel (NPUAP)
== END 2025-04-22 15:28 | disposition home health service (06) | DRG 871 ==
LOC: 3 WEST ACU 01:41
PROVIDERS: Emergency Medicine; Physician Assistant; ADMITTING PHYSICIAN Hospitalist; ATTENDING PHYSICIAN Hospitalist; CONSULT PHYSICIAN Nuclear Medicine Nuclear Cardiology; EMERGENCY PHYSICIAN Emergency Medicine; FAMILY PHYSICIAN Internal Medicine
DX: A41.9 Sepsis, unspecified organism (principal); J18.9 Pneumonia, unspecified organism; J96.01 Acute respiratory failure with hypoxia; I48.92 Unspecified atrial flutter; I50.32 Chronic diastolic (congestive) heart failure; I48.0 Paroxysmal atrial fibrillation; Z95.1 Presence of aortocoronary bypass graft; I25.10 Atherosclerotic heart disease of native coronary artery without angina pectoris; I11.0 Hypertensive heart disease with heart failure; E03.9 Hypothyroidism, unspecified; K59.00 Constipation, unspecified; W19.XXXA Unspecified fall, initial encounter; Z87.891 Personal history of nicotine dependence; Z79.82 Long term (current) use of aspirin; Z79.01 Long term (current) use of anticoagulants; Z79.890 Hormone replacement therapy; Z79.899 Other long term (current) drug therapy; E78.5 Hyperlipidemia, unspecified; Z11.52 Encounter for screening for COVID-19; L89.896 Pressure-induced deep tissue damage of other site
CPT/HCPCS: 70450; 71045; 72125; 80048; 80053; 81003; 81015; 83605; 83880; 85025; 85027; 85610; 87040; 87502; 87811; 93005; 93306; 97162; 99285

== ENCOUNTER 2025-05-20 07:03 | Day surgery (SDC) | payer OTHER, SELFPAY ==
--- NOTE | 2025-05-20 10:09 | ITS.CL.CARDI ---
Life Science Technician - Cardioversion
Cardioversion
Procedure Report:
Procedure: WYATT-guided electrical cardioversion
Pre-operative diagnosis: Persistent atrial flutter
Post-operative diagnosis: Persistent atrial flutter status post DC cardioversion to sinus rhythm
Anesthesia: MAC
Attending Physician: Christopher Durham MD
Procedure Description: The patient was brought to the electrophysiology laboratory in the fasting state. Informed consent was obtained from the patient prior to the start of the procedure. Adherence to anticoagulation was confirmed. Electrodes were
placed on the patient and connected to an external defibrillator. Monitoring of blood pressure, ECG tracings, and pulse oximetry was initiated. The pads were applied to the patient in the anterior and posterior positions. The patient was sedated by
the anesthesiologist. A WYATT (reported separately) was performed prior to the cardioversion. No left atrial or left atrial appendage thrombus was seen. After the WYATT probe was removed, a 200 joule biphasic synchronized shock was delivered to the
patient under MAC anesthesia. Sinus rhythm was successfully restored. The patient recovered uneventfully from MAC anesthesia. There were no immediate post-procedure complications. The patient left the lab in good condition. The attending physician
was present throughout the entire procedure.
Impression: Successful WYATT-guided direct current cardioversion with rastafari of sinus rhythm after one 200 joule biphasic synchronized shock.
== END 2025-05-20 09:56 | disposition home or self-care (01) ==
LOC: CATH 07:03
PROVIDERS: ATTENDING PHYSICIAN Internal Medicine Cardiovascular Disease; FAMILY PHYSICIAN Internal Medicine; OTHER PHYSICIAN Internal Medicine Cardiovascular Disease
DX: I48.91 Unspecified atrial fibrillation (principal); I48.92 Unspecified atrial flutter; I34.0 Nonrheumatic mitral (valve) insufficiency; I25.10 Atherosclerotic heart disease of native coronary artery without angina pectoris; I11.0 Hypertensive heart disease with heart failure; I50.30 Unspecified diastolic (congestive) heart failure; Z79.01 Long term (current) use of anticoagulants; Z79.899 Other long term (current) drug therapy; Z79.82 Long term (current) use of aspirin; Z79.890 Hormone replacement therapy
CPT/HCPCS: 93312; 93320; 93325; 92960; 93005

== ENCOUNTER → 2025-05-26 09:35 | Outpatient (REF) | payer OTHER, SELFPAY | LOC: RAD 09:35 | PROVIDERS: ATTENDING PHYSICIAN Podiatrist Foot Surgery; FAMILY PHYSICIAN Internal Medicine | DX: M86.9 Osteomyelitis, unspecified (principal) | CPT/HCPCS: 78315; A9503 ==

== ENCOUNTER → 2025-05-28 06:29 | Outpatient (REF) | payer OTHER, SELFPAY | LOC: RAD 06:29 | PROVIDERS: ATTENDING PHYSICIAN Podiatrist Foot Surgery; FAMILY PHYSICIAN Internal Medicine | DX: M86.171 Other acute osteomyelitis, right ankle and foot (principal) | CPT/HCPCS: 78803; A9569 ==

== ENCOUNTER → 2025-06-25 06:50 | Outpatient (REF) | payer OTHER, SELFPAY ==
[2025-06-25 08:20] LABS: Hematocrit 36.7 % (39.0-52.0); Hemoglobin 12.3 g/dL (13.0-18.0); Mean Corp Hgb Conc. 33.5 g/dL (33.0-37.0); Mean Corpuscular Volume 93.1 fL (80.0-94.0); Nucleated Red Blood Cells % 0 % (-); Platelet Count 173 10^3/uL (130-400); Red Cell Dist. Width 13.2 % (11.5-14.5)
[2025-06-25 09:13] LABS: ALT (SGPT) 21 U/L (0-50); AST (SGOT) 23 U/L (17-59); Albumin 3.9 g/dl (3.5-5.0); Alkaline Phosphatase 63 U/L (38-126); Blood Urea Nitrogen 29 mg/dl (9-20); Calcium 9.5 mg/dl (8.4-10.2); Carbon Dioxide 27 mmol/L (22-30); Chloride 108 mmol/L (98-107); Glucose 90 mg/dl (70-99); Potassium 4.6 mmol/L (3.5-5.1); Sodium 139 mmol/L (135-145); Total Protein 5.9 g/dl (6.3-8.2); eGFR > 60.00
== END ==
LOC: REG 06:50
PROVIDERS: ATTENDING PHYSICIAN Podiatrist Foot Surgery; FAMILY PHYSICIAN Internal Medicine
DX: M86.9 Osteomyelitis, unspecified (principal); M20.41 Other hammer toe(s) (acquired), right foot
CPT/HCPCS: 36415; 80053; 85025

== ENCOUNTER → 2025-07-02 18:44 | Outpatient (REF) | payer OTHER, SELFPAY | LOC: CLAB 18:44 | PROVIDERS: ATTENDING PHYSICIAN Orthopaedic Surgery | DX: M86.9 Osteomyelitis, unspecified (principal) | CPT/HCPCS: 87070; 87075; 87176; 87205 ==

== ENCOUNTER 2025-09-02 05:51 | Day surgery (SDC) | payer OTHER, SELFPAY ==
[2025-09-02] VITALS (9 sets, daily range): BP systolic 113–166; BP diastolic 46–69; BMI 28.6
[2025-09-02] MEDS: TYLENOL 1000 MG PO (06:28)
[2025-09-02] MEDS: NORMOSOL-R/PLASMALYTE-A 1000 IV (06:38)
--- NOTE | 2025-09-02 07:06 | W.SUR.PREOP ---
Pre-Operative Surgical Note
-
I have examined this patient prior to the performance of the scheduled procedure.
The patient's condition is unchanged from the time of the current History and
Physical and the patient is able to undergo the scheduled procedure.
--- NOTE | 2025-09-02 07:06 | HP.FOC2 ---
Addendum entered and electronically signed by Fabrizio Rueda MD 09/02/25 07:15:
The patient's hernia is on the RIGHT side. We will move forward with an open RIGHT inguinal hernia repair with mesh. He last took his eliquis on Saturday.
Original Note:
Focused History & Physical
Chief Complaint
HPI:
Chief Complaint: Left inguinal hernia
HPI / Indication for Planned Procedure: This is an 85-year-old male who presents with a symptomatic left inguinal hernia. Plan for an open left inguinal hernia pair with mesh.
Relevant Past Medical History: Negative
Relevant Social History: Negative
Relevant Family History: Negative
Relevant Past Surgical History: Negative
Review of Systems
Review of Pertinent Systems: All Systems Negative
Medication
See Medication form for detailed medications: Yes
Medication List (including Herbals & OTC):
ascorbic acid (vitamin C) 1,000 mg tablet (Vitamin C) 1,000 mg PO DAILY Supplement 04/20/25
aspirin 81 mg tablet 81 mg PO DAILY Blood Clot Prevention/Tx 04/20/25
atorvastatin 40 mg tablet (Lipitor) 40 mg PO QPM cholesterol 04/20/25
bumetanide 0.5 mg tablet 0.5 mg PO DAILY Fluid Retention/Swelling 04/20/25
coenzyme Q10 100 mg capsule (CoQ-10) 100 mg PO QPM Supplement 04/20/25
levothyroxine 75 mcg tablet (Synthroid) 75 mcg PO DAILY Thyroid 04/20/25
multivitamin 1 tab PO DAILY Supplement 04/20/25
valsartan 40 mg tablet 40 mg PO DAILY 04/20/25
apixaban 5 mg tablet (Eliquis) 5 mg PO BID 30 days #60 tabs 04/22/25
Probiotic 1 cap PO QPM 09/01/25
cholecalciferol (vitamin D3) 125 mcg (5,000 unit) tablet (Vitamin D3) 125 mcg PO QPM 09/01/25
docusate sodium 100 mg capsule (Colace) 100 mg PO DAILY 09/01/25
magnesium 250 mg tablet 250 mg PO QPM 09/01/25
metoprolol succinate 25 mg tablet,extended release 24 hr 12.5 mg PO DAILY 09/01/25
saw palmetto 450 mg capsule 450 mg PO QPM 09/01/25
zinc acetate 50 mg (zinc) capsule 50 mg PO QPM 09/01/25
Medications Reviewed: Yes
Allergies and Reactions
Patient has Allergies: No
Noted Allergies and Reactions:
Allergy/AdvReac Type Severity Reaction Status Date / Time
No Known Allergies Allergy Verified 09/02/25 06:17
Pertinent Physical Exam
All Other Systems: Negative
Head/Neck: Normal
Diagnosis / Assessment
This is an 85-year-old male who presents with a symptomatic left inguinal hernia. Plan for an open left inguinal hernia pair with mesh.
Plan / Procedure
This is an 85-year-old male who presents with a symptomatic left inguinal hernia. Plan for an open left inguinal hernia pair with mesh.
--- NOTE | 2025-09-02 08:47 | W.IMMPOSTOP ---
Surgical Immed Post Op Note
-
Primary Surgeon: Fabrizio Rueda MD
Assisting Surgeon: None
Pre-op Diagnosis: Right inguinal hernia
Post-op Diagnosis: Same
Procedure Performed:
1. Open right inguinal hernia repair with mesh
2. Excision of spermatic cord lesion
3. Pragmatic inguinal neurectomy
Anesthesia Type: General
Specimen / Cultures:
1. Right cord lipoma
2. Right inguinal nerve
Estimated Blood Loss: 3 cc
Complications: None
Operative Findings: Large 11 cm right indirect inguinal hernia. Mild weakness in the direct space. Floor reinforced with a 7.5 x 15 cm Bard soft uncoated polypropylene mesh. Large cord lipoma carefully dissected off of the spermatic cord
structures and excised.
--- NOTE | 2025-09-02 08:54 | OR.RPT ---
Operative Report
Operative Report
Patient Name: Juan Alberto Kumar
: 1940
Date of Operation: 09/02/2025
Preoperative Diagnosis: Right inguinal hernia
Postoperative Diagnosis: Right inguinal hernia, spermatic cord lipoma
Procedure(s):
1. Open right inguinal hernia repair with mesh (02287)
2. Pragmatic right inguinal neurectomy x 1 (50569)
3. Excision of lesion of a spermatic cord lipoma ([id number])
Surgeon(s):
Dr. Rueda
Industrial Custodian(s):
TRACY Mckeon
Anesthesia: MAC converted to LMA/general
Estimated Blood Loss: 3 cc
Urine Output: None
Drains/Lines/Implants: 15x7.5cm Bard Soft uncoated polypropylene Mesh cut to size
Specimen / Cultures:
Inguinal nerves x 1
Spermatic cord lipoma
Indication for surgery: The patient has a history of groin pain and some asymmetry noted on exam and was found to have a left inguinal Hernia. Following review of therapeutic options they elected to undergo an open repair
Operative Findings: Small left indirect inguinal hernia without contents. High ligation performed. No direct component. Large spermatic cord lipoma isolated and high ligation performed. The ilioinguinal and iliohypogastric nerves were identified
and sacrificed high. The floor was reconstructed with a 15 x 7.5 cm Bard soft uncoated polypropylene mesh in the standard fashion.
Details of the operation:
After induction of general anesthesia, the patient was clipped, prepped and draped in the supine position. A team timeout was performed confirming administration of DVT prophylaxis, IV antibiotics and SCDs. The ASIS and pubic tubercle were marked
and an incision was chosen along the course of a skin line. The skin was anesthetized with Lidocaine. An incision was made through the skin line and dissection carried down through subcutaneous tissue and Cherie's fascia. The superficial epigastric
vein was identified and ligated. A Small Juanito wound retractor was used to provide exposure. The external oblique fibers were then divided in the direction of travel. The ilioinguinal nerve was identified and sacrificed as it was laying right in
the anticipated mesh field. Dissection was carried down to the floor, which revealed the following:
At the site of the indirect (internal) ring, there was a large hernia sac that was over 11 cm, dissected and reduced off the cord structures. It was opened with Metzenbaum scissors and inside a sliding hernia defect was identified. The hernia sac
was truncated to the level of this sliding fat and then closed with a running 2-0 Vicryl. The hernia sac was inverted and returned to the abdomen.
A large cord lipoma was also identified and resected. This was sent to specimen #2
The direct space, floor of the canal revealed a mild weakness.
The floor of the canal was then reconstructed by placing a15 x 7.5 cm Bard soft uncoated polypropylene mesh trimmed to size and secured it in place with interrupted 0-Maxon sutures medially at the pubic tubercle, inferiorly along the inguinal
ligament, laterally/superiorly in the conjoint tendon. A slit was made in the mesh just wide enough to accommodate the cord this was also reapproximated with the Maxon suture. Care was taken not to injure or entrap any nerves. The external oblique
fibers were then closed using a running 2-0 Vicryl suture. Cherie's fascia was then closed with interrupted 3-0 Vicryl suture. The skin was closed in layers with interrupted 3-0 vicryl deep dermals followed by a running subcuticular 4-0 Monocryl
followed by dermabond. The patient returned to the Recovery Room in stable condition. Sponge and instrument counts were correct.
I was the attending physician and performed the procedure with assistance of the PA above. The assistance of TRACY Mckeon was required due to the complexity of the procedure. During the procedure Delma assisted with tissue retraction, resection,
and closure of the wound. I was present for all portions of the case, excluding skin closure.
Fabrizio uReda MD
== END 2025-09-02 10:56 | disposition home or self-care (01) ==
LOC: SDS 05:51
PROVIDERS: ATTENDING PHYSICIAN Surgery
DX: K40.90 Unilateral inguinal hernia, without obstruction or gangrene, not specified as recurrent (principal)
CPT/HCPCS: 49505; 88304